=== PATIENT | female | born 1995 | race Caucasian/White ===

== ENCOUNTER 2018-05-17 15:32 | Emergency (ER) | payer MEDICAID, OTHER, SELFPAY ==
[~2018-05-17] VITALS: Ht 157.5 cm; Wt 69.1 kg
[2018-05-17 16:46] LABS: BASO % 0.4 % (0.0-1.0); EOS # 0.1 10^3/uL (0.0-0.50); EOS % 0.8 % (0.0-3.0); HEMATOCRIT 38.3 % (36.0-47.0); HEMOGLOBIN 12.9 g/dl (12.0-15.5); LYMPH # 2.2 10^3/uL (1.5-6.5); LYMPH % 27.7 % (24.0-44.0); MEAN CORPUSCULAR HEMOGLOBIN 29.9 pg (27.0-33.0); MEAN CORPUSCULAR HGB CONC 33.7 g/dl (32.0-36.5); MEAN CORPUSCULAR VOLUME 88.7 fl (80.0-96.0); MONO # 0.6 10^3/uL (0.0-0.8); MONO % 7.6 % (0.0-5.0); NEUTROPHILS # 4.9 10^3/uL (1.8-7.7); NEUTROPHILS % 63.1 % (36.0-66.0); PLATELET COUNT, AUTOMATED 262 10^3/uL (150-450); RED BLOOD COUNT 4.32 10^6/uL (4.00-5.40); WHITE BLOOD COUNT 7.8 10^3/uL (4.0-10.0)
[2018-05-17 17:32] LABS: BLOOD UREA NITROGEN 8 MG/DL (7-18); CARBON DIOXIDE LEVEL 28 MEQ/L (21-32); CHLORIDE LEVEL 107 MEQ/L (98-107); CREATININE FOR GFR 0.64 MG/DL (0.55-1.30); GLUCOSE, FASTING 79 MG/DL (70-100); HCG, SERUM QUANTITATIVE 12327 MIU/ML; POTASSIUM SERUM 4.1 MEQ/L (3.5-5.1); SODIUM LEVEL 141 MEQ/L (136-145)
[2018-05-17] MEDS ORDERED: NS 1,000 ML IV ONE (17:45)
[2018-05-17] MEDS ORDERED: NORCO, ANEXSIA 5/325MG TABLET (HYDROcodone/ACETAMINOPHEN) PO ONE (17:45)
--- NOTE | 2018-05-17 17:47 | REP ---
Renal ultrasound for left flank pain: The right kidney measures 11.05 x 4.45 x 3.85 centimeters. The left kidney measures 10.85 x 4.1 x 4.57 cm. The kidneys are normal size. There is no hydronephrosis on the right on the left. There are no renal calculi on the right on the left. There are no solid or cystic renal masses on the right on the left. Renal cortical echogenicity is normal bilaterally. Bladder: The bladder is adequately distended. No bladder wall masses or nodules are identified. Impression: Essentially negative renal ultrasound. Electronically Signed by Claus Anderson MD 05/17/2018 05:39 P
--- NOTE | 2018-05-17 17:52 | REP ---
Obstetric ultrasound, emergency study for left flank pain: The studies performed transabdominal, endovaginal and Doppler ultrasound assessment. There is an intrauterine gestational sac with a pole. The heart rate is 163 beats per minute. The pole crown-rump length is 6.3 cm. This corresponds to a gestational age of 6 weeks 0 days/LAWRENCE 01/10/2019. Gestational age by LMP is 7 weeks 0 days/LAWRENCE 01/03/2019. There is no subchorionic hematoma. There is a right ovarian 3.25 cm cyst, likely a corpus luteum. Including the cyst of the right ovary measures 4.08 by 3.81 by 3.88 cm and is normal size. With color Doppler assessment there is right ovarian vascular flow. The left ovary could not be visualized. There is no free fluid in the pelvis. Electronically Signed by Claus Anderson MD 05/17/2018 05:44 P
[2018-05-17] MEDS ORDERED: AUGM875T28 PO (18:53)
[2018-05-17 19:04] VITALS: BP 101/55
--- NOTE | 2018-05-18 13:54 | ED PDOC ---
Post-Departure Follow-Up beatriz flower to call pt in regards to pelvic us. ? overy left resected - us lisa strates no left ovary and left flank pain - ro torsion? pt to be instructed to come back. Myles Mack MD May 18, 2018 13:54
== END 2018-05-17 19:24 | disposition home or self-care (01) ==
LOC: M ED 15:32
DX: O23.41 Unspecified infection of urinary tract in pregnancy, first trimester (principal); Z3A.01 Less than 8 weeks gestation of pregnancy; Z88.5 Allergy status to narcotic agent

== ENCOUNTER 2018-05-18 16:11 | Emergency (ER) | payer MEDICAID, OTHER, SELFPAY ==
[~2018-05-18] VITALS: Ht 157.5 cm; Wt 70.5 kg
[~2018-05-18 16:11] MED LIST: AUGM875T28 PO
[2018-05-18 17:48] VITALS: BP 132/58
--- NOTE | 2018-05-18 18:11 | REP ---
FIRST TRIMESTER ULTRASOUND: Real-time sonographic evaluation of the gravid uterus is performed utilizing transabdominal technique. There is a single living intrauterine gestation. The estimated gestational age is 6 weeks based on a crown rump length of 3 mm, EDC 01/11/2019. heart rate is 108 beats per minute. There is no subchorionic hemorrhage. A right ovarian cyst may represent a corpus luteum measuring 3.7 x 3.4 x 3.5 cm. There is no torsion bilaterally. No free fluid is seen. Electronically Signed by Claus Sidhu MD 05/18/2018 11:55 P
== END 2018-05-18 17:58 | disposition home or self-care (01) ==
LOC: M ED 16:11
DX: O26.891 Other specified pregnancy related conditions, first trimester (principal); R10.9 Unspecified abdominal pain; O34.81 Maternal care for other abnormalities of pelvic organs, first trimester; N83.201 Unspecified ovarian cyst, right side; Z88.5 Allergy status to narcotic agent; Z3A.01 Less than 8 weeks gestation of pregnancy

== ENCOUNTER 2018-06-05 22:04 | Emergency (ER) | payer MEDICAID, OTHER, SELFPAY ==
[~2018-06-05] VITALS: Ht 157.5 cm; Wt 72.7 kg
[2018-06-05 22:57] LABS: HEMATOCRIT 36.3 % (36.0-47.0); HEMOGLOBIN 12.3 g/dl (12.0-15.5); MEAN CORPUSCULAR HEMOGLOBIN 30.4 pg (27.0-33.0); MEAN CORPUSCULAR HGB CONC 33.9 g/dl (32.0-36.5); MEAN CORPUSCULAR VOLUME 89.6 fl (80.0-96.0); PLATELET COUNT, AUTOMATED 221 10^3/uL (150-450); RED BLOOD COUNT 4.05 10^6/uL (4.00-5.40); WHITE BLOOD COUNT 8.9 10^3/uL (4.0-10.0)
[2018-06-05 23:08] LABS: INR 0.96; PROTHROMBIN TIME 12.9 SECONDS (12.1-14.4)
[2018-06-05 23:52] LABS: BLOOD UREA NITROGEN 14 MG/DL (7-18); CALCIUM LEVEL 8.3 MG/DL (8.5-10.1); CARBON DIOXIDE LEVEL 27 MEQ/L (21-32); CHLORIDE LEVEL 109 MEQ/L (98-107); CREATININE FOR GFR 0.67 MG/DL (0.55-1.30); GLUCOSE, FASTING 95 MG/DL (70-100); POTASSIUM SERUM 3.7 MEQ/L (3.5-5.1); SODIUM LEVEL 142 MEQ/L (136-145)
--- NOTE | 2018-06-06 00:40 | REPVR ---
EXAM: US Pelvis Complete, Transabdominal and US Pelvis, Transvaginal and US Duplex Artery and Vein, Ovaries, Complete EXAM DATE/TIME: 06/05/2018 11:29 PM CLINICAL HISTORY: 22 years old, female; Pain; Abdominal pain; Lower abdomen; Additional info: Post ab with bleeding TECHNIQUE: Imaging protocol: Real-time transabdominal and transvaginal pelvic ultrasound (complete) with image documentation. Transvaginal imaging was used for better evaluation of the endometrium and adnexa. Real-time duplex ultrasound scan of the arterial and venous flow of the ovaries with B-mode, color Doppler flow and spectral waveform analysis. Complete transabdominal pelvis ultrasound and complete duplex were performed. COMPARISON: RENAL US 05/17/2018 5:02 PM FINDINGS: Uterus/cervix: Uterus measures 9.6 x 5 x 5.5 cm. Endometrial stripe is 1.6 cm. No definite associated vascularity is appreciated. Nabothian cysts. Right adnexa: Right ovary measures 4 x 3.3 x 3 cm. There is a 2.5 x 2 x 2.5 cm right ovarian cyst containing internal low level echoes. Normal arterial and venous waveform. Left adnexa: Left ovary measures 1.5 x 2.4 x 2 cm. Normal arterial and venous waveform. Free fluid: Trace free fluid in the cul-de-sac. Bladder: Normal. IMPRESSION: Thickened endometrial stripe without definite associated vascularity suggests. No evidence of ovarian torsion. 2.5 x 2 x 2.5 cm right ovarian cyst containing internal low level echoes. Trace free fluid in the cul-de-sac. Electronically signed by: Buzz Lundberg On 06/06/2018 00:39:21 AM
[2018-06-06] MEDS ORDERED: BACT800T5 PO (01:39)
[2018-06-06] MEDS ORDERED: BACTRIM 160MG/800MG DS TAB PO ONE (01:45)
[2018-06-06] MEDS ORDERED: IBUPROFEN 800 MG TAB PO ONE (02:00)
[2018-06-06 02:04] VITALS: BP 127/78
[2018-06-06 02:34] LABS: CHLAMYDIA DNA AMPLIFICATION NEGATIVE (NEGATIVE); GC DNA AMPLIFICATION NEGATIVE (NEGATIVE)
--- NOTE | 2018-06-06 11:08 | ED PDOC ---
Post-Departure Follow-Up ft azar ob faxed formal report of pelvic us for fu Myles Mack MD Jun 06, 2018 11:08
[2018-06-06] MEDS ORDERED: KETO10TAB PO (20:19)
== END 2018-06-06 02:00 | disposition home or self-care (01) ==
LOC: M ED 22:04
DX: N39.0 Urinary tract infection, site not specified (principal); N99.821 Postprocedural hemorrhage of a genitourinary system organ or structure following other procedure; Z88.5 Allergy status to narcotic agent

== ENCOUNTER 2018-06-06 15:34 | Emergency (ER) | payer MEDICAID, OTHER, SELFPAY ==
[~2018-06-06] VITALS: Ht 157.5 cm; Wt 73.6 kg
[~2018-06-06 15:34] MED LIST changes: +BACT800T5 PO
[2018-06-06] MEDS ORDERED: NS 1,000 ML IV ONE (17:30)
[2018-06-06] MEDS ORDERED: ONDANSETRON 4MG/2ML VIAL (J2405) IV ONE (17:30)
[2018-06-06] MEDS ORDERED: KETOROLAC 30 MG/ML VIAL (J1885) IV ONE (17:30)
[2018-06-06 17:58] LABS: BASO % 0.2 % (0.0-1.0); EOS % 0.5 % (0.0-3.0); HEMATOCRIT 38.7 % (36.0-47.0); LYMPH # 2.1 10^3/uL (1.5-6.5); LYMPH % 24.3 % (24.0-44.0); MEAN CORPUSCULAR HEMOGLOBIN 29.9 pg (27.0-33.0); MEAN CORPUSCULAR HGB CONC 33.6 g/dl (32.0-36.5); MONO # 0.4 10^3/uL (0.0-0.8); MONO % 4.3 % (0.0-5.0); NEUTROPHILS # 6.1 10^3/uL (1.8-7.7); NEUTROPHILS % 70.5 % (36.0-66.0); PLATELET COUNT, AUTOMATED 250 10^3/uL (150-450); RED BLOOD COUNT 4.35 10^6/uL (4.00-5.40); WHITE BLOOD COUNT 8.6 10^3/uL (4.0-10.0)
[2018-06-06 18:34] LABS: ALBUMIN 3.7 GM/DL (3.2-5.2); ALT/SGPT 30 U/L (12-78); BILIRUBIN,DIRECT < 0.1 MG/DL (0.0-0.2); BILIRUBIN,TOTAL 0.2 MG/DL (0.2-1.0); BLOOD UREA NITROGEN 13 MG/DL (7-18); CALCIUM LEVEL 8.9 MG/DL (8.5-10.1); CARBON DIOXIDE LEVEL 23 MEQ/L (21-32); CHLORIDE LEVEL 109 MEQ/L (98-107); CREATININE FOR GFR 0.73 MG/DL (0.55-1.30); GLUCOSE, FASTING 104 MG/DL (70-100); LIPASE 108 U/L (73-393); SODIUM LEVEL 139 MEQ/L (136-145); TOTAL PROTEIN 7.1 GM/DL (6.4-8.2)
[2018-06-06] MEDS ORDERED: ISOVUE-370 76% 125ML VIAL (Q9967 PER ML) As Ordered ONE (18:42)
--- NOTE | 2018-06-06 19:12 | REP ---
Clinical: Bilateral flank pain. Technique: Axial contrast enhanced images from the lung bases to the pubic symphysis using 100 ml Isovue 370 intravenous contrast material with coronal and sagittal re-formations. Findings: Lung bases are clear. Visualized heart and pericardium normal. Liver, spleen, pancreas, gallbladder, bilateral adrenal glands and kidneys are normal. No perinephric stranding or hydroureteronephrosis. The enteric system is without obstruction or acute inflammatory process. Pelvis demonstrates normal bladder and age-appropriate uterus/adnexa. No ascites. No free air. No adenopathy. Abdominal aorta and vasculature without aneurysm or dissection. Musculoskeletal structures are intact. Impression: Normal contrast enhanced CT of the abdomen and pelvis. No acute abdominopelvic pathology appreciated. Electronically Signed by Librado Pinzon MD 06/06/2018 07:04 P
[2018-06-06] MEDS ORDERED: KETO10TAB PO (20:19)
[2018-06-06 20:33] VITALS: BP 110/65
== END 2018-06-06 20:35 | disposition home or self-care (01) ==
LOC: M ED 15:34
DX: N83.201 Unspecified ovarian cyst, right side (principal); N39.0 Urinary tract infection, site not specified; Z88.5 Allergy status to narcotic agent; Z79.2 Long term (current) use of antibiotics; Z98.890 Other specified postprocedural states
CPT/HCPCS: 74177; 80048; 80076; 81001; 83690; 85025; 96361; 96374; 96375; 99284; J1885; J2405; Q9967

== ENCOUNTER 2018-10-03 02:46 | Emergency (ER) | payer OTHER, MEDICAID ==
[~2018-10-03] VITALS: Ht 157.5 cm; Wt 74.5 kg
[~2018-10-03 02:46] MED LIST changes: +KETO10TAB PO
[2018-10-03 03:03] VITALS: BP 110/67
[2018-10-03 03:59] LABS: ABG BASE EXCESS -0.8 (-2.0-2.0); ABG HCO3 23.1 MEQ/L (22.0-26.0); ABG O2 SATURATION 98.3 % (95.0-99.0); ABG PARTIAL PRESSURE CO2 35.9 mmHg (35.0-45.0); ABG PARTIAL PRESSURE O2 111.5 mmHg (75.0-100.0); ABG STANDARD HCO3 23.9 MEQ/L (22.0-26.0); ABG TOTAL CO2 24.2 MEQ/L (22.0-29.0); ABG pH (ARTERIAL) 7.427 UNITS (7.350-7.450)
--- NOTE | 2018-10-03 05:22 | REP ---
Clinical: Dyspnea . Comparison: None . Findings: The mediastinum and cardiac silhouette are stable and within normal limits for portable technique. The lung chatterjee are clear without acute consolidation, effusion, or pneumothorax. Skeletal structures are intact. Impression: No acute cardiopulmonary process appreciated. Electronically Signed by Librado Pinzon MD 10/03/2018 05:14 A
--- NOTE | 2018-10-03 07:26 | ECGEPIP ---
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
== END 2018-10-03 04:38 | disposition home or self-care (01) ==
LOC: M ED 02:46
DX: F41.9 Anxiety disorder, unspecified (principal); Z88.5 Allergy status to narcotic agent

== ENCOUNTER → 2018-10-14 | Outpatient (CLI) | payer OTHER, MEDICAID ==
--- NOTE | 2018-10-14 16:07 | REP ---
Left breast ultrasound: The patient is a 22-year-old female with a 2 cm tender palpable lump at 8 o'clock in the left breast. Additionally she has had bacteria for 8 months. Ultrasonography of the left breast at 8 o'clock identifies glandular and fibrocystic parenchyma. There is no nodule, mass or cyst. Impression: BIRADS category one negative left breast ultrasound. There is no evidence of malignancy. Electronically Signed by Claus Anderson MD 10/14/2018 03:59 P
== END ==
LOC: M RAD 14:04
PROVIDERS: ATTEND Nurse Practitioner Women's Health
DX: N63.20 Unspecified lump in the left breast, unspecified quadrant (principal)

== ENCOUNTER 2018-12-22 08:16 | Emergency (ER) | payer OTHER, MEDICAID ==
[~2018-12-22] VITALS: Ht 157.5 cm; Wt 78.7 kg
[2018-12-22] MEDS ORDERED: MIRE1IUD IU (08:24)
[2018-12-22] MEDS ORDERED: ONDANSETRON 4 MG ORAL DISINTEGRATING TAB (Q0162 PER 1MG) PO ONE (09:30)
[2018-12-22] MEDS ORDERED: KETOROLAC 60 MG/2 ML VIAL (J1885) IM ONE (09:30)
--- NOTE | 2018-12-22 09:55 | REP ---
Cervical spine two views AP and lateral projections: Vertebral body heights, interspacing alignment are normal. The prevertebral soft tissues are normal. The facets are normally aligned. Mineralization is normal. Impression: Negative AP and lateral views of the cervical spine. Electronically Signed by Claus Anderson MD 12/22/2018 09:47 A
--- NOTE | 2018-12-22 09:57 | REP ---
RIGHT HAND, FOUR VIEWS: There is no evidence of an acute fracture, dislocation or intrinsic bone disease. IMPRESSION: No fracture or dislocation. Electronically Signed by Claus Sidhu MD 12/23/2018 09:13 A
--- NOTE | 2018-12-22 09:57 | REP ---
RIGHT SHOULDER THREE VIEWS: There is no evidence of an acute fracture, dislocation or intrinsic bone disease. IMPRESSION: No fracture or dislocation. Electronically Signed by Claus Sidhu MD 12/23/2018 09:13 A
[2018-12-22 10:36] VITALS: BP 114/70
== END 2018-12-22 10:47 | disposition home or self-care (01) ==
LOC: M ED 08:16
DX: S13.4XXA Sprain of ligaments of cervical spine, initial encounter (principal); S63.91XA Sprain of unspecified part of right wrist and hand, initial encounter; V49.49XA Driver injured in collision with other motor vehicles in traffic accident, initial encounter; Y92.410 Unspecified street and highway as the place of occurrence of the external cause
CPT/HCPCS: 72040; 73030; 73130; 96372; 99283; J1885; Q0162

== ENCOUNTER 2019-04-11 08:11 | Emergency (ER) | payer MEDICAID, OTHER ==
[~2019-04-11] VITALS: Ht 157.5 cm; Wt 69.0 kg
[~2019-04-11 08:11] MED LIST changes: +MIRE1IUD IU
[2019-04-11] MEDS ORDERED: NS 1,000 ML IV ONE (09:15)
[2019-04-11] MEDS ORDERED: ONDANSETRON 4MG/2ML VIAL (J2405) IV ONE (09:15)
[2019-04-11 10:18] LABS: BASO % 0.2 % (0.0-1.0); EOS % 0.1 % (0.0-3.0); HEMATOCRIT 43.5 % (36.0-47.0); HEMOGLOBIN 14.3 g/dl (12.0-15.5); LYMPH # 0.4 10^3/uL (1.5-5.0); LYMPH % 3.5 % (24.0-44.0); MEAN CORPUSCULAR HEMOGLOBIN 29.9 pg (27.0-33.0); MEAN CORPUSCULAR HGB CONC 32.9 g/dl (32.0-36.5); MONO # 0.4 10^3/uL (0.0-0.8); MONO % 3.8 % (0.0-5.0); NEUTROPHILS # 10.5 10^3/uL (1.5-8.5); PLATELET COUNT, AUTOMATED 220 10^3/uL (150-450); RED BLOOD COUNT 4.78 10^6/uL (4.00-5.40); WHITE BLOOD COUNT 11.4 10^3/uL (4.0-10.0)
[2019-04-11] MEDS ORDERED: KETOROLAC 30 MG/ML VIAL (J1885) IV ONE (10:30)
[2019-04-11 10:46] LABS: ALBUMIN 4.2 GM/DL (3.2-5.2); BILIRUBIN,DIRECT 0.2 MG/DL (0.0-0.2); BILIRUBIN,TOTAL 0.6 MG/DL (0.2-1.0); TOTAL PROTEIN 7.3 GM/DL (6.4-8.2)
[2019-04-11] MEDS ORDERED: ONDA4TAB6 PO (10:57)
[2019-04-11] MEDS ORDERED: ACETAMINOPHEN 325 MG TAB PO ONE (11:15)
[2019-04-11] MEDS ORDERED: KETO10TAB PO (12:28)
[2019-04-11 12:32] VITALS: BP 110/55
== END 2019-04-11 12:37 | disposition home or self-care (01) ==
LOC: M ED 08:11
DX: R11.2 Nausea with vomiting, unspecified (principal); R51 Headache; Z79.3 Long term (current) use of hormonal contraceptives; Z88.6 Allergy status to analgesic agent
CPT/HCPCS: 80047; 80076; 83690; 84702; 85025; 96361; 96374; 96375; 99284; J1885; J2405

== ENCOUNTER 2019-05-25 22:56 | Inpatient (IN) | payer OTHER ==
[~2019-05-25] VITALS: Ht 157.5 cm; Wt 75.1 kg
[~2019-05-25 22:56] MED LIST changes: +ONDA4TAB6 PO
[2019-05-25] MEDS ORDERED: ATOM40CA9 PO (23:12)
[2019-05-25] MEDS ORDERED: PROAAER10 INH (23:12)
[2019-05-25] MEDS ORDERED: NS 1,000 ML IV SCH (23:15)
[2019-05-25 23:32] LABS: BASO % 0.2 % (0.0-1.0); EOS % 0.2 % (0.0-3.0); HEMATOCRIT 41.4 % (36.0-47.0); HEMOGLOBIN 13.9 g/dl (12.0-15.5); LYMPH # 2.4 10^3/uL (1.5-5.0); LYMPH % 29.1 % (24.0-44.0); MEAN CORPUSCULAR HEMOGLOBIN 30.3 pg (27.0-33.0); MEAN CORPUSCULAR HGB CONC 33.6 g/dl (32.0-36.5); MEAN CORPUSCULAR VOLUME 90.2 fl (80.0-96.0); MONO # 0.7 10^3/uL (0.0-0.8); MONO % 7.9 % (0.0-5.0); NEUTROPHILS # 5.2 10^3/uL (1.5-8.5); NEUTROPHILS % 62.2 % (36.0-66.0); PLATELET COUNT, AUTOMATED 232 10^3/uL (150-450); RED BLOOD COUNT 4.59 10^6/uL (4.00-5.40); WHITE BLOOD COUNT 8.4 10^3/uL (4.0-10.0)
[2019-05-26 00:02] LABS: ACETAMINOPHEN LEVEL < 2.0 UG/ML (10.0-30.0); ALBUMIN 4.2 GM/DL (3.2-5.2); ALT/SGPT 45 U/L (12-78); BILIRUBIN,DIRECT 0.2 MG/DL (0.0-0.2); BILIRUBIN,TOTAL 0.5 MG/DL (0.2-1.0); BLOOD UREA NITROGEN 9 MG/DL (7-18); CALCIUM LEVEL 9.2 MG/DL (8.5-10.1); CARBON DIOXIDE LEVEL 25 MEQ/L (21-32); CHLORIDE LEVEL 108 MEQ/L (98-107); CPK CREATINE PHOSPHOKINASE 82 U/L (26-192); CREATININE FOR GFR 0.86 MG/DL (0.55-1.30); ETHYL ALCOHOL (ETHANOL) 0.003 % (0.000-0.010); GLOMERULAR FILTRATION RATE > 60.0 (>60); GLUCOSE, FASTING 79 MG/DL (70-100); POTASSIUM SERUM 3.7 MEQ/L (3.5-5.1); SALICYLATE LEVEL < 1.7 MG/DL (5.0-30.0); SODIUM LEVEL 143 MEQ/L (136-145); THYROID STIMULATING HORMONE 0.613 uIU/ML (0.358-3.740); TOTAL PROTEIN 7.3 GM/DL (6.4-8.2)
[2019-05-26 00:08] LABS: HCG, SERUM QUALITATIVE NEGATIVE (NEGATIVE)
--- NOTE | 2019-05-26 00:21 | ECGEPIP ---
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
[2019-05-26 00:50] LABS: AMPHETAMINES LEVEL URINE NEGATIVE (NEGATIVE); BARBITURATES URINE NEGATIVE (NEGATIVE); BENZODIAZEPINES URINE NEGATIVE (NEGATIVE); CANNABINOIDS URINE NEGATIVE (NEGATIVE); COCAINE METABOLITE URINE NEGATIVE (NEGATIVE); METHADONE URINE NEGATIVE (NEGATIVE); OPIATES URINE NEGATIVE (NEGATIVE); PHENCYCLIDINE URINE NEGATIVE (NEGATIVE)
[2019-05-26] MEDS ORDERED: KETO10TAB PO (06:10)
[2019-05-26] MEDS ORDERED: SUMA50TA2 PO (06:10)
[2019-05-26] MEDS ORDERED: OLANZapine ORAL DISINTEGRATING TAB 5MG PO PRN (07:00)
[2019-05-26] MEDS ORDERED: ACETAMINOPHEN TAB 650MG DOSE (2X325MG) PO PRN (07:00)
[2019-05-26] MEDS ORDERED: MOM 30ML SUSPENSION UDC PO PRN (07:00)
[2019-05-26] MEDS ORDERED: MAALOX 30 ML SUSP *UDC PO PRN (07:00)
[2019-05-26 12:10] VITALS: BP 126/79
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
[2019-05-26] MEDS ORDERED: ALBUTEROL 90 MCG/ACT 8GM HFA INHALER INH PRN (13:45)
--- NOTE | 2019-05-26 13:48 | HPEPDOC ---
[facility] Medical History & Physical Date of Admission May 26, 2019 Date of Service: May 26, 2019 History and Physical Chief complaint: We have been consulted for medical management of this patient has been admitted to psychiatric unit. The patient has come in for suicidal ideation History of present illness: This is the 23-year-old female with no significant medical history, comes to the psychiatric unit and we have been consulted for medical reasons. The patient states that she has a lot of stressors and suffers from depression. She states that she took mirtazapine multiple tablets unknown quantity with that idea to end her life. EKG in the ER has been normal. She is in sinus rhythm and hemodynamic likely stable. She currently has been admitted to the psychiatric facility and the management will be as per them. She denies any shortness of breath, any chest pain, any headache. He states that she does not have any intentions of hurting himself or anybody else at this point of time. Family history. Hypertension. Social history. Denies any drug abuse. Denies any recreational drug use. Past medical history : Asthma Past surgical history none as per patient Review of systems. Pertinent positive findings as per HPI and is negative PHYSICAL EXAMINATION: General: The patient is awake, alert, oriented x3, sitting up in the bed in no apparent distress. Head and Neck Exam: Extraocular muscles intact. Pupils equally round and reactive to light. Mucous membranes are moist. Neck is supple. There is no jugular venous distention (JVD). Cardiovascular: S1 and S2, regular rate. No real edema Respiratory: Clear auscultation Abdomen: Soft. Positive bowel sounds. Nontender. No organomegaly. Genitourinary: Deferred Musculoskeletal: Clubbing of the fingernails, no cyanosis was noted. Central Nervous System (STOCK ORDER LISTER): No focal deficit. Power is 5/5 in all extremities. Medications reviewed Radiology reviewed Assessment and plan This is a 23-year-old female was been admitted to the psychiatric facility and we have been consulted for medical management. 1. Depressive disorder. Management is per psychiatry. Took unknown quantity of mirtazapine. EKG normal. Bicarbonate normal electrolytes, normal. White initially stable. Continue monitoring from psychiatric standpoint. Continue monitoring hemodynamics. 2. Asthma. Continue inhaled rescue inhaler when necessary 3. History of migraine headaches.: Will recommend continuing Imitrex if no interaction with antipsychotic medications which the psychiatrist is planning to start Diet as per psychiatric Thank so much for consulting us on this patient Vital Signs Vital Signs Date Time Temp Pulse Resp B/P (MAP) Pulse Ox O2 Delivery O2 Flow Rate FiO2 05/26/19 12:10 98.1 77 16 126/79 (95) 100 05/26/19 11:41 Room Air Laboratory Data Labs 24H Laboratory Tests 2 05/25/19 23:21: Immature Granulocyte % (Auto) 0.4, Neutrophils (%) (Auto) 62.2, Lymphocytes (%) (Auto) 29.1, Monocytes (%) (Auto) 7.9H, Eosinophils (%) (Auto) 0.2, Basophils (%) (Auto) 0.2, Neutrophils # (Auto) 5.2, Lymphocytes # (Auto) 2.4, Monocytes # (Auto) 0.7, Eosinophils # (Auto) 0.0, Basophils # (Auto) 0.0, Nucleated Red Blood Cells % (auto) 0.0, Anion Gap 10, Glomerular Filtration Rate > 60.0, Calcium Level 9.2, Total Bilirubin 0.5, Direct Bilirubin 0.2, Aspartate Amino Transf (AST/SGOT) 24, Alanine Aminotransferase (ALT/SGPT) 45, Alkaline Phosphatase 106, Total Creatine Kinase 82, Total Protein 7.3, Albumin 4.2, Albumin/Globulin Ratio 1.35, Thyroid Stimulating Hormone (TSH) 0.613, Human Chorionic Gonadotropin, Qual NEGATIVE, Salicylates Level < 1.7L, Acetaminophen Level < 2.0L, Ethyl Alcohol Level 0.003 05/25/19 23:24: Bedside Glucose (Misc Panel) 71 05/26/19 00:13: Urine Opiates Screen NEGATIVE, Urine Methadone Screen NEGATIVE, Urine Barbiturates Screen NEGATIVE, Urine Phencyclidine Screen NEGATIVE, Urine Amphetamines Screen NEGATIVE, Urine Benzodiazepines Screen NEGATIVE, Urine Cocaine Metabolite Screen NEGATIVE, Urine Cannabinoids Screen NEGATIVE CBC/BMP Laboratory Tests 05/25/19 23:21 Home Medications Scheduled Atomoxetine HCl (Atomoxetine HCl) 40 Mg Capsule, 40 MG PO BID Scheduled PRN Albuterol Sulfate (Proair Hfa) 8.5 Gm Hfa.aer.ad, 2 PUFF INH Q4H PRN for SOB/WHEEZING Ketorolac Tromethamine (Ketorolac Tromethamine) 10 Mg Tablet, 10 MG PO Q6H PRN for PAIN Sumatriptan Succinate (Sumatriptan Succinate) 50 Mg Tablet, 50 MG PO DAILY PRN for MIGRAINE MAY REPEAT IF SYMPTOMS DO NOT IMPROVE, DO NOT EXCEED 2 TABS IN 24 HRS Miscellaneous Medications Levonorgestrel (Mirena) 1 Each Iud, 20 MCG IU Allergies Coded Allergies: morphine (Verified Allergy, Unknown, 10/03/18) LIV FITZGERALD MD May 26, 2019 13:48
[2019-05-26 16:00] VITALS: BP 137/83
[2019-05-26] MEDS ORDERED: SUMAtriptan SUCCINATE 25 MG TAB PO PRN (18:00)
[2019-05-26] MEDS: traZODone 50 MG TAB PO PRN (21:01)
[2019-05-26] MEDS: ATOMOXETINE HCL 40 MG CAP (STRATTERA) PO SCH (21:01)
[2019-05-27 06:46] VITALS: BP 130/93
[2019-05-27] MEDS: SERTRALINE HCL 25 MG TABLET PO SCH (09:54)
[2019-05-27] MEDS: ATOMOXETINE HCL 40 MG CAP (STRATTERA) PO SCH ×2 (09:54→20:25)
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
[2019-05-27 17:35] VITALS: BP 122/78
[2019-05-27] MEDS: traZODone 50 MG TAB PO PRN (22:47)
[2019-05-28 06:09] VITALS: BP 127/79
[2019-05-28] MEDS: ATOMOXETINE HCL 40 MG CAP (STRATTERA) PO SCH ×2 (08:48→20:13)
[2019-05-28] MEDS: SERTRALINE HCL 25 MG TABLET PO SCH (08:48)
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
[2019-05-28 15:00] VITALS: BP 135/69
[2019-05-28] MEDS: traZODone 50 MG TAB PO PRN (22:47)
[2019-05-29 06:06] VITALS: BP 123/62
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
[2019-05-29] MEDS: ATOMOXETINE HCL 40 MG CAP (STRATTERA) PO SCH ×2 (09:34→21:00)
[2019-05-29] MEDS: SERTRALINE HCL 25 MG TABLET PO SCH (09:34)
[2019-05-29 16:00] VITALS: BP 140/86
[2019-05-29] MEDS: traZODone 50 MG TAB PO PRN (22:52)
[2019-05-30 06:26] VITALS: BP 146/86
[2019-05-30] MEDS: SERTRALINE HCL 25 MG TABLET PO SCH (08:02)
[2019-05-30] MEDS: ATOMOXETINE HCL 40 MG CAP (STRATTERA) PO SCH (08:02)
[2019-05-30] MEDS ORDERED: SERT25TA21 PO (09:20)
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
== END 2019-05-30 11:15 | disposition home or self-care (01) | DRG 881 ==
LOC: M ED 22:56 → M ED INP 05-26 06:48 → M PSY 05-26 12:04
PROVIDERS: ADMIT Psychiatry & Neurology Addiction Medicine; ATTEND Psychiatry & Neurology Addiction Medicine
DX: F32.9 Major depressive disorder, single episode, unspecified (principal); F43.21 Adjustment disorder with depressed mood; T43.022A Poisoning by tetracyclic antidepressants, intentional self-harm, initial encounter; R41.840 Attention and concentration deficit; J45.909 Unspecified asthma, uncomplicated; G43.909 Migraine, unspecified, not intractable, without status migrainosus; Z79.899 Other long term (current) drug therapy; Z63.0 Problems in relationship with spouse or partner; Z81.8 Family history of other mental and behavioral disorders; Z88.5 Allergy status to narcotic agent

== ENCOUNTER 2020-02-22 22:34 | Emergency (ER) | payer OTHER, SELFPAY ==
[~2020-02-22] VITALS: Ht 157.5 cm; Wt 69.5 kg
[~2020-02-22 22:34] MED LIST changes: +ATOM40CA9 PO; +PROAAER10 INH; +SERT25TA21 PO; +SUMA50TA2 PO
[2020-02-22] MEDS ORDERED: TRAZ-186 (22:42)
[2020-02-22] MEDS ORDERED: DULO1CAP6 (22:42)
[2020-02-23 01:53] LABS: BASO % 0.2 % (0.0-1.0); EOS % 0.3 % (0.0-3.0); HEMATOCRIT 38.8 % (36.0-47.0); HEMOGLOBIN 12.6 g/dl (12.0-15.5); LYMPH # 2.8 10^3/uL (1.5-5.0); MEAN CORPUSCULAR HEMOGLOBIN 29.9 pg (27.0-33.0); MEAN CORPUSCULAR HGB CONC 32.5 g/dl (32.0-36.5); MEAN CORPUSCULAR VOLUME 91.9 fl (80.0-96.0); MONO # 0.6 10^3/uL (0.0-0.8); MONO % 5.4 % (0.0-5.0); NEUTROPHILS # 6.9 10^3/uL (1.5-8.5); NEUTROPHILS % 66.6 % (36.0-66.0); PLATELET COUNT, AUTOMATED 227 10^3/uL (150-450); RED BLOOD COUNT 4.22 10^6/uL (4.00-5.40); WHITE BLOOD COUNT 10.3 10^3/uL (4.0-10.0)
[2020-02-23 02:29] LABS: HCG, SERUM QUALITATIVE NEGATIVE (NEGATIVE)
[2020-02-23 02:30] LABS: ALT/SGPT 28 U/L (12-78); BILIRUBIN,DIRECT 0.1 MG/DL (0.0-0.2); BILIRUBIN,TOTAL 0.3 MG/DL (0.2-1.0); BLOOD UREA NITROGEN 12 MG/DL (7-18); CALCIUM LEVEL 9.2 MG/DL (8.5-10.1); CARBON DIOXIDE LEVEL 26 MEQ/L (21-32); CHLORIDE LEVEL 106 MEQ/L (98-107); CREATININE FOR GFR 0.81 MG/DL (0.55-1.30); GLOMERULAR FILTRATION RATE > 60.0 (>60); GLUCOSE, FASTING 75 MG/DL (70-100); LIPASE 70 U/L (73-393); POTASSIUM SERUM 3.6 MEQ/L (3.5-5.1); SODIUM LEVEL 137 MEQ/L (136-145); TOTAL PROTEIN 7.2 GM/DL (6.4-8.2)
[2020-02-23 02:41] VITALS: BP 111/71
--- NOTE | 2020-02-23 03:03 | REPVR ---
PROCEDURE INFORMATION: Exam: US Pelvis Complete, Transabdominal and US Pelvis, Transvaginal Exam date and time: 02/23/2020 2:22 AM Age: 24 years old Clinical indication: Pelvic pain; Additional info: Pelvic cramping, concerned for iud misplacement TECHNIQUE: Imaging protocol: Real-time transabdominal and transvaginal pelvic ultrasound (complete) with image documentation. Transvaginal imaging was used for better evaluation of the endometrium, adnexa, and/or cervix. COMPARISON: CT ABD/PEL W/IV CONTRAST ONLY 06/06/2018 6:46 PM FINDINGS: Uterus/cervix: The uterus measures 7.2 cm in its cephalocaudad dimension and 3.4 cm in its AP dimension transabdominal. The uterus measures 8.2 cm in its cephalocaudad dimension and 4.2 x 5.3 cm in its AP and lateral dimensions. There is an IUD centered in the lower uterine segment. The endometrium measures 8 mm transvaginal. Right adnexa: The right ovary measures 3.3 x 2.2 x 2.4 cm with a lobular cyst/follicle measuring 20 x 11 x 16 mm. There is right ovarian blood flow. Left adnexa: The left ovary is not seen. Intraperitoneal space: No intraperitoneal free fluid. Urinary bladder: The urinary bladder is not well seen. IMPRESSION: 1. IUD centered in the lower uterine segment. 2. Right ovarian cyst/follicle measuring 20 x 11 x 16 mm. 3. Otherwise negative pelvic sonogram. The left ovary is not seen. Electronically signed by: Bk Keys On 02/23/2020 03:03:31 AM
[2020-02-23 03:04] LABS: CHLAMYDIA DNA AMPLIFICATION NEGATIVE (NEGATIVE); GC DNA AMPLIFICATION NEGATIVE (NEGATIVE)
== END 2020-02-23 03:37 | disposition home or self-care (01) ==
LOC: M ED 22:34
DX: N83.201 Unspecified ovarian cyst, right side (principal); R10.2 Pelvic and perineal pain; K21.9 Gastro-esophageal reflux disease without esophagitis; F41.9 Anxiety disorder, unspecified; Z97.5 Presence of (intrauterine) contraceptive device; Z88.5 Allergy status to narcotic agent